=== PATIENT | female | born 1995 | race Caucasian/White ===

== ENCOUNTER 2023-08-26 23:07 | Emergency (ER) | payer OTHER ==
--- NOTE | 2023-08-26 23:31 | ED Physician Documentation ---
PD HPI ALTERED MENTAL STATUS - Stated complaint Stated Complaint: JOSE MANUEL - Chief complaint Chief Complaint: MHE - History obtained from History obtained from: EMS, Police - Additional information Additional information: brought to ED by police. Patient does not contribute to HPI; she is nonverbal on my H+P, awake, crying Per police, the patient was a passenger in a vehicle that had called to request a tow. Per police, when the flight control tower operator showed up on scene, patient exited the vehicle and was belligerent with the flight control tower operator, threatening to sic her dog on them. The flight control tower operator thus drove away for his own safety and called police. Police arrived to find patient was acting bizarre, confused and repeatedly asking questions that had just been answered. While trying to talk to the patient, she weaved in and out of traffic a few times, nearly getting hit by passing vehicles. Patient was thus brought to ED as JOSE MANUEL by police. On my H+P she rapidly goes from calm although nonverbal and poor eye contact to hyperkinetic and trying to leave the room. ED staff tried to calm patient and explain that she needs to stay in the room but patient continued to try to leave without giving any indication that she is oriented to self, time, place, situation. PD PAST MEDICAL HISTORY - Past Medical History Past Medical History: No - Past Surgical History Past Surgical History: No - Present Medications Home Medications: Ambulatory Orders Medication Instructions Recorded Confirmed Home Medications Unobtainable 08/26/23 08/26/23 [HOME MEDICATIONS UNOBTAINABLE] - Allergies Allergies/Adverse Reactions: Allergies Allergy/AdvReac Type Severity Reaction Status Date / Time Unable to Assess Allergy Verified 08/26/23 23:18 - Social History Does the pt smoke?: No Smoking Status: Never smoker PD ED PE NORMAL - Vitals Vital signs reviewed: Yes - General General: Well developed/nourished, Other (appears anxious and agitated at times, but periods of calm and tearful. Poor eye contact, nonverbal on my H+P) - HEENT HEENT: Atraumatic, PERRL, EOMI - Cardiac Cardiac: RRR, No murmur - Respiratory Respiratory: No respiratory distress, Clear bilaterally - Derm Derm: Normal color, Warm and dry Results - Vitals Vitals: Vital Signs - 24 hr 08/26/23 08/26/23 23:15 23:35 Temperature 36.7 C 36.8 C Heart Rate 100 82 Respiratory 18 16 Rate Blood Pressure 121/81 H 126/75 O2 Saturation 99 97 Oxygen O2 Source Room air - Labs Labs: Laboratory Tests 08/27/23 08/27/23 08/27/23 00:12 00:12 00:12 WBC 7.7 RBC 4.40 Hgb 12.3 Hct 40.4 MCV 91.8 MCH 28.0 MCHC 30.4 L RDW 13.4 Plt Count 303 MPV 9.6 Neut # (Auto) 4.1 Lymph # (Auto) 2.7 [place] # (Auto) 0.7 Eos # (Auto) 0.1 Baso # (Auto) 0.1 Absolute Nucleated RBC 0.00 Nucleated RBC % 0.0 Sodium 142 Potassium 3.4 L Chloride 109 Carbon Dioxide 25 Anion Gap 8.0 BUN 13 Creatinine 0.6 Estimated GFR (MDRD) 121 Glucose 104 Calcium 9.4 Magnesium 1.9 Total Bilirubin 0.6 AST 10 ALT 9 L Alkaline Phosphatase 40 L Total Creatine Kinase 82 Total Protein 6.3 L Albumin 4.1 Globulin 2.2 Albumin/Globulin Ratio 1.9 Lipase 11 TSH 0.07 L Thyroxine (T4) Free T3 pg/mL T3 Uptake Urine Color Urine Clarity Urine pH Ur Specific [place] Urine Protein Urine Glucose (UA) Urine Ketones Urine Occult Blood Urine Nitrite Urine Bilirubin Urine Urobilinogen Ur Leukocyte Esterase Ur Microscopic Review Urine Culture Comments Urine HCG, Qual Salicylates < 1.5 Urine Opiates Screen Ur Buprenorphine Scrn Ur Oxycodone Screen Urine Methadone Screen Acetaminophen 0.1 Ur Barbiturates Screen Ur Tricyclics Screen Ur Phencyclidine Scrn Ur Amphetamine Screen U Methamphetamines Scrn U Benzodiazepines Scrn Urine Cocaine Screen U Cannabinoids Screen Ur Drug Screen Comment Ethyl Alcohol < 10.0 SARS-CoV-2 (PCR) NOT DETECTED 08/27/23 08/27/23 00:12 07:33 WBC RBC Hgb Hct MCV MCH MCHC RDW Plt Count MPV Neut # (Auto) Lymph # (Auto) [place] # (Auto) Eos # (Auto) Baso # (Auto) Absolute Nucleated RBC Nucleated RBC % Sodium Potassium Chloride Carbon Dioxide Anion Gap BUN Creatinine Estimated GFR (MDRD) Glucose Calcium Magnesium Total Bilirubin AST ALT Alkaline Phosphatase Total Creatine Kinase Total Protein Albumin Globulin Albumin/Globulin Ratio Lipase TSH Thyroxine (T4) 6.1 Free T3 pg/mL 3.07 T3 Uptake 45 Urine Color DARK YELLOW Urine Clarity CLEAR Urine pH 6.0 Ur Specific [place] >=1.030 H Urine Protein NEGATIVE Urine Glucose (UA) NEGATIVE Urine Ketones TRACE Urine Occult Blood NEGATIVE Urine Nitrite NEGATIVE Urine Bilirubin SMALL H Urine Urobilinogen 0.2 (NORMAL) Ur Leukocyte Esterase NEGATIVE Ur Microscopic Review NOT INDICATED Urine Culture Comments NOT INDICATED Urine HCG, Qual NEGATIVE Salicylates Urine Opiates Screen POSITIVE H Ur Buprenorphine Scrn NEGATIVE Ur Oxycodone Screen NEGATIVE Urine Methadone Screen NEGATIVE Acetaminophen Ur Barbiturates Screen NEGATIVE Ur Tricyclics Screen NEGATIVE Ur Phencyclidine Scrn NEGATIVE Ur Amphetamine Screen POSITIVE H U Methamphetamines Scrn POSITIVE H U Benzodiazepines Scrn NEGATIVE Urine Cocaine Screen POSITIVE H U Cannabinoids Screen POSITIVE H Ur Drug Screen Comment CUTOFF CONC BELOW: Ethyl Alcohol SARS-CoV-2 (PCR) PD Medical Decision Making - ED course Complexity details: reviewed results, re-evaluated patient, considered differential, d/w patient ED course: Unremarkable CBC, ER abdominal panel. Minimal hypokalemia is noted (3.4). TSH is low (0.07). Repeated request by ED RN's as well as myself to patient to provide a urine sample were made but she refused to do so for several hours. At one point, she tried to leave the ED, getting to the ambulance bay door just to find that it was locked. She then angrily stormed back into her room and proceeded to yell at ED staff, cursing at us and demanding we all leave the room. Multiple attempts to deescalate the situation were unsuccessful and thus I ordered 10mg IM zyprexa; this was initially intended as a chemical restraint but I was then told by ED RN that patient readily accepted the injection without protest or reservation. Thus, the zyprexa is not given as chemical restraint at that point but, instead, for its anti-psychotic properties. At the end of my shift, we continue to await a urine sample so that urine drug screen can be undertaken; the results of the urine drug screen certainly would have potential as to further steps and treatment (normal urine drug screen would strongly suggest etiology for her odd behavior is underlying mental illness versus result of substance use if UDS is positive). Care of patient is turned over to oncoming ED physician (Dr. Marion) Departure - Departure Forms: PCP List Restraint [id number] - Immediate Situation Face to Face Evaluation Date: 08/26/23 Face to Face Evaluation Time: 23:55 Restraint Classification: Violent, physical - Patient's Reaction & Behaviors Safety: Physically safe, Non-compliant Verbal: Crying/Tearful Harm: Potential harm to self Other: Resting quietly - Behavioral Condition Attitude: Indifferent Behavior: Withdrawn Orientation: Non-responsive Mood: Other (tearful) - Evaluation Pertinent History/Illicit Drugs/Medications/Results: see H+P - Plan Need to Initiate/Renew Violent or Chemical Restraint: needs to be AAOx3 and exhibit mental capacity to understand testing/treatment recommendations and can consent/refuse
[2023-08-27 00:18] LABS: BASOPHILS # (AUTO) 0.1 10^3/uL (0.0-0.1); BASOPHILS % (AUTO) 0.7 %; EOSINOPHILS # (AUTO) 0.1 10^3/uL (0.0-0.7); EOSINOPHILS % (AUTO) 1.4 %; HCT - HEMATOCRIT 40.4 % (37.0-47.0); HGB - HEMOGLOBIN 12.3 g/dL (12.0-16.0); LYMPHOCYTES # (AUTO) 2.7 10^3/uL (1.5-3.5); LYMPHOCYTES % (AUTO) 35.3 %; MEAN CORPUSCULAR HGB CONC 30.4 g/dL (32.0-36.0); MEAN CORPUSCULAR VOLUME 91.8 fL (81.0-99.0); MEAN PLATELET VOLUME 9.6 fL (7.9-10.8); MONOCYTES # (AUTO) 0.7 10^3/uL (0.0-1.0); MONOCYTES % (AUTO) 8.6 %; NEUTROPHILS # (AUTO) 4.1 10^3/uL (1.5-6.6); NEUTROPHILS % (AUTO) 53.7 %; PLT - PLATELET COUNT 303 10^3/uL (130-450); RED CELL DISTRIBUTION WIDTH 13.4 % (12.0-15.0); WHITE BLOOD COUNT 7.7 x10^3/uL (4.8-10.8)
[2023-08-27 00:35] LABS: MAGNESIUM 1.9 mg/dL (1.7-2.3)
[2023-08-27 00:41] LABS: ACETAMINOPHEN 0.1 ug/mL; ALBUMIN 4.1 g/dL (3.2-5.5); ALBUMIN/GLOBULIN RATIO 1.9 (1.0-2.2); ALKALINE PHOSPHATASE 40 IU/L (42-121); ALT ALANINE AMINOTRANSFERASE 9 IU/L (10-60); AST ASPARTATE AMINOTRANSFERASE 10 IU/L (10-42); BILIRUBIN,TOTAL 0.6 mg/dL (0.2-1.0); BUN - BLOOD UREA NITROGEN 13 mg/dL (6-20); CALCIUM 9.4 mg/dL (8.5-10.3); CARBON DIOXIDE - CO2 25 mmol/L (21-32); CHLORIDE 109 mmol/L (101-111); CK- CREATINE KINASE 82 IU/L (30-223); CREATININE 0.6 mg/dL (0.6-1.3); ETOH - ETHANOL < 10.0 mg/dL; GFR - MDRD 121 (>89); GLUCOSE 104 mg/dL (74-104); LIPASE 11 U/L (11-82); POTASSIUM 3.4 mmol/L (3.5-4.5); SODIUM 142 mmol/L (135-145); TOTAL PROTEIN 6.3 g/dL (6.4-8.9)
[2023-08-27 00:47] LABS: SALICYLATE < 1.5 mg/dL
[2023-08-27 00:52] LABS: THYROID STIMULATING HORMONE 0.07 uIU/mL (0.34-5.60)
[2023-08-27] MEDS ORDERED: OLANZapine 10 MG VIAL IM ONE (05:50)
[2023-08-27] MEDS: OLANZapine 10 MG VIAL IM STA (06:00)
[2023-08-27] MEDS: OLANZapine ODT 5 MG TABLET TL STA (07:32)
[2023-08-27] MEDS: LORazepam 1 MG TABLET PO STA (07:32)
[2023-08-27 07:40] LABS: BILIRUBIN,URINE SMALL (NEGATIVE); GLUCOSE, URINE (UA) NEGATIVE (NEGATIVE); KETONES,URINE (UA) TRACE mg/dL (NEGATIVE); LEUKOCYTE ESTERASE, URINE NEGATIVE (NEGATIVE); NITRITE,URINE NEGATIVE (NEGATIVE); OCCULT BLOOD,URINE NEGATIVE (NEGATIVE); PROTEIN,URINE NEGATIVE (NEGATIVE); UROBILINOGEN,URINE 0.2 (NORMAL) E.U./dL (NORMAL)
[2023-08-27 07:43] LABS: CLARITY,URINE CLEAR (CLEAR)
[2023-08-27 07:44] LABS: HCG UR QUAL NEGATIVE
[2023-08-27 07:49] LABS: AMPHETAMINE SCREEN,URINE POSITIVE (NEGATIVE); BARBITURATE SCREEN,UR NEGATIVE (NEGATIVE); BENZODIAZEPINES SCREEN, URINE NEGATIVE (NEGATIVE); BUPRENORPHINE SCREEN, URINE NEGATIVE (NEGATIVE); COCAINE SCREEN URINE POSITIVE (NEGATIVE); METHADONE SCREEN, URINE NEGATIVE (NEGATIVE); METHAMPHETAMINES SCREEN, URINE POSITIVE (NEGATIVE); OPIATE SCREEN, URINE POSITIVE (NEGATIVE); OXYCODONE SCREEN, URINE NEGATIVE (NEGATIVE); THC CANNABINOID SCREEN, URINE POSITIVE (NEGATIVE); TRICYCLIC ANTIDEPRESSANT,URINE NEGATIVE (NEGATIVE)
--- NOTE | 2023-08-27 09:57 | ED Physician Documentation ---
ED Addendum - Addendum Addendum: 08/27/23 09:55 At change of shift the patient was starting to yell and be agitated with up and out of bed and pacing around the room and yelling at the nurses and myself. Verbal consolation was somewhat effective. She was offered food and breakfast. She did agree to give a urine sample and was given breakfast but she was still quite agitated and seemed a bit confused. She was answering questions directly. I offered some more oral medicine to help with relaxing and she excepted. She was given an oral dose of Zyprexa and lorazepam. This did seem to have positive effect on allowing calming. However she did get somewhat somnolent from it. Breathing is still adequate and she is sitting up in bed. Social work tried to talk with her but she was more incoherent at this time and seems likely to be medication related at this point as she was talking more clearly earlier though more physically agitated and verbally as well. At this point we will give some time for the medication to decrease its effect and have social work talk with her.
[2023-08-27] MEDS ORDERED: NALOXONE 0.4 MG/ML VIAL ONE (15:09)
[2023-08-27] MEDS: NALOXONE 0.4 MG/ML VIAL SUBQ STA (15:12)
--- NOTE | 2023-08-27 19:35 | TELEPSYCH PHYS NOTE ---
[facility] Telepsych Consult Consult Date: 08/27/23 Name of Referring Provider:: Ariel Marion MD Reason for Consult: Mental Health Evaluation - Suicide Risk Sreening (ASQ Tool) In the past few weeks, have you wished you were ?: No In the past few weeks, have you felt that you or your family would be better off if you were ?: No In the past week, have you been having thoughts about killing yourself?: No Have you ever tried to kill yourself?: No - Assessment Language: Sami Bone Worker Required: No Cultural, Amish or Spiritual Preferences: Denies. Chief Complaint: Altered Mental Status History of Present Illness: Patient is a 28 year old female that presents to the ED via Police for altered mental status and belligerent behavior. Patient denies any previous mental health problems and substance abuse issues. However, UDS positive for meth, cocaine, opiates, cannabis, and amphetamines. Per police, towel hemmer was going to [employer] vehicle and patient got out acting belligerent and threatened to put dog on towel hemmer. courtesy driver left scene for safety and called Police. Police found patient a few blocks away yelling out car window and weaving in and out of traffic. Per patient, "I was just walking around and I was with my dog on leash. That's all." Suicide Ideation - Homicide Ideation - Self Harm: Denies SI. Denies SI. Denies Self Harm. Psychiatric History - Treatment History: Inpatient for mental health once. Has gone to substance abuse treatment. Community Resources Accessed: N/A Family Psych History/ History of suicide: Denies. Denies. Nutritional Status: No nutritional concerns, Weight loss or gain of 10 pounds or more in the last three months, Decrease in food intake and/or appetite, Dental problems, Eating habits/behaviors that may be indicators of an eating disorder - Medication & Allergies Home Medications: Ambulatory Orders Medication Instructions Recorded Confirmed Home Medications Unobtainable 08/26/23 08/26/23 [HOME MEDICATIONS UNOBTAINABLE] Allergies/Adverse Reactions: Allergies Allergy/AdvReac Type Severity Reaction Status Date / Time Unable to Assess Allergy Verified 08/26/23 23:18 - Drug & Alcohol History Does patient have Drug/ETOH history or addictive behavior?: Yes Use: Uses substance without health or social issues: Amphetamine, Cannabis, Cocaine, Opioid Use Issues: Intoxication Abuse: Recurrent use of substance despite neg consequences: Amphetamine, Cannabis, Cocaine, Opioid Abuse Issues: Intoxication Dependence: Experiences withdrawal or developed tolerances: Other Dependence Issues: Intoxication - Trauma Does the patient have a history of trauma, abuse, neglect or explotation?: Yes History of trauma, abuse, neglect, or exploitation (Notes): "Prob all of them above." - Personal Information Does the patient have a history or present tendencies for violence?: Present History or present tendencies for violence (Notes): Patient was acting billergent towards towel hemmer. Services History: Denies. Does patient have any Legal Charges or Investigations?: Yes Legal Charges or Investigations (Notes): Been arrested. Has gone to [facility]. Environment & Living Situation - Social, Peer-Group (Note): At home Environment & Living Situation - Social, Peer-Group (Notes): "Lives with my moms boyfriend." Marital Status - Family Circumstances: No kids. Stressors - Financial Concerns: "My dog is out on the streets. I don't have food right now. I'm very stressed." Education: 11th grade. Occupation: Unemployed. Collateral - Interdisciplinary Input: N/A Childhood History: Unable to assess due to symptoms - Mental Status Exam Appearance and Attire: Disheveled. Hospital Scrubs. Attitude and Behavior: Tired. Sleepy. Irritable. No eye contact. Avoidant. Speech: Coherent. Loud at times. Affect and Mood: Tired. Sleepy. Association and Thought Process: Organized and Disorganized thought process Thought Content: Denies SI. Denies HI. Perception: Denies auditory and visual hallucinations. Sensorium, memory and orientation: Alert and Oriented at times. Intellectual - Cognitive functioning: Impaired. Insight and Judgement: Impaired. Emotional and Behavioral Functioning: Impaired. Ability to Self-Care: Independent. - Personal Goals Short-term Goals: "Not right this fucking second." Long-term Goals: "Not right this fucking second." - Risk/Protective Factors Risk Factors: Trigger events leading to humiliation, shame and/or despair, Sexual or physical abuse, Substance intoxication or withdrawal, Pending incarceration or homelessness Protective Factors / Internal: Identifies reasons for living Protective Factors / External: Beloved pets - Plan Impression/Risk Assessment: Patient is a 28 year old female that presents to the ED via Police for altered mental status and belligerent behavior. Patient denies SI/HI/Hallucinations. Patient also denies any drug use. However, UDS is positive for Meth, amphetamines, cocaine, and cannabis. Patient is in and out of sleep and is hard to arose. Patient is guarded and irritable. Patient appears to be coming down from the use of substances abused. Patient did say she wanted treated for substance abuse. Due to patients presentation but desire to want help, patient will be referred to substance abuse treatment. Treatment - Therapy Recommendations: -Substance Abuse Treatment -Supportive Therapy Pharmacological Recommendations: At this time, no recommendations for mental health medications. Comfort meds as needed for detox from substances used. - Problem List (2) Stimulant intoxication Qualifiers: Complication of substance-induced condition: uncomplicated Qualified Code(s): F15.920 - Other stimulant use, unspecified with intoxication, uncomplicated - Time Spent & Provider Location Telepsych consultation conducted via videoconferencing: Yes List names and roles of persons who participated in consult: YASHIRA Miller and Patient Telepsych Provider Location: Remote Time Spent (Minutes): 30
--- NOTE | 2023-08-27 21:11 | ED Physician Documentation ---
ED Addendum - Addendum Addendum: 08/27/23 21:08 Patient awake, alert, cooperative, does not appear to be under the influence of any illicit substances at this time. Telepsychiatry evaluated patient and recommends detox. Patient states that she is open to the idea of detox but cannot go at this time because she has to find her dog and get affairs at home settled. She did request resources for detox to follow-up with. She states that she feels safe going home and has a ride to come pick her up from the emergency department.
[2023-08-27] MEDS: NALOXONE HCL NASAL SPRAY KIT NAS STA (21:24)
[2023-08-28 09:48] VITALS: BP 114/65; O2SAT 96
== END 2023-08-28 09:39 | disposition home or self-care (01) ==
LOC: ED 23:07
DX: F15.120 Other stimulant abuse with intoxication, uncomplicated (principal); R45.1 Restlessness and agitation
CPT/HCPCS: 36415; 80053; 80143; 80179; 80306; 81003; 81025; 82077; 82550; 83690; 83735; 84436; 84443; 84479; 84481; 85025; 87635; 96372; 96374; 99284; 99285; A9270; G0425; G2215; J8499; Q3014; 81001; 87086